=== PATIENT | female | born 2005 | race Hispanic/Latino ===

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

== ENCOUNTER 2025-01-11 12:19 | Emergency (ER) | payer OTHER ==
[~2025-01-11] VITALS: Ht 165.1 cm; Wt 45.3 kg
[~2025-01-11 12:19] MED LIST changes: +DIPH-435 PO; -DIPH25CA32 PO; +FLUO-365; +FLUO-96 PO; -FLUO20CA20 PO; -FLUO20CA22; +HYDR-643 PO; +HYDR1CAP25; +IRON65TA2 PO
[2025-01-11 15:11] LABS: KETONE, URINE AUTO RFX TRACE mg/dL (NEGATIVE); LEUKOCYTE ESTERASE UR AUTO RFX NEGATIVE (NEGATIVE); MUCUS, URINE RFX MODERATE (NEGATIVE); NITRITE, URINE AUTO RFX NEGATIVE (NEGATIVE); RBC, URINE AUTO RFX 1 /HPF (0-3); SQUAM EPITHELIAL CELL UR AURFX 2 /HPF (0-6); WBC, URINE AUTO RFX 2 /HPF (0-3)
[2025-01-11 16:22] LABS: Trichomonas vaginalis (AMP) NOT DETECTED (NEGATIVE)
[2025-01-11 16:47] LABS: GC DNA AMPLIFICATION NEGATIVE (NEGATIVE)
[2025-01-11] MEDS ORDERED: PHEN-501 PO (17:53)
[2025-01-11 18:07] VITALS: BP 115/77; TEMP 97.5; O2SAT 100
== END 2025-01-11 18:09 | disposition home or self-care (01) ==
LOC: M ED 12:19
DX: R30.0 Dysuria (principal); F43.10 Post-traumatic stress disorder, unspecified; F41.9 Anxiety disorder, unspecified; F32.A Depression, unspecified; Z79.899 Other long term (current) drug therapy

== ENCOUNTER 2025-01-16 07:43 | Emergency (ER) | payer OTHER, SELFPAY ==
[~2025-01-16] VITALS: Ht 165.1 cm; Wt 46.4 kg
[~2025-01-16 07:43] MED LIST changes: +PHEN-501 PO
[2025-01-16 12:45] VITALS: BP 124/74; TEMP 97.8; O2SAT 99
[2025-01-16 13:27] LABS: RSV AMPLIFICATION NEGATIVE (NEGATIVE)
== END 2025-01-16 12:47 | disposition home or self-care (01) ==
LOC: M ED 07:43
DX: J02.9 Acute pharyngitis, unspecified (principal); F41.9 Anxiety disorder, unspecified; F32.A Depression, unspecified; Z79.899 Other long term (current) drug therapy

== ENCOUNTER → 2025-01-19 | Outpatient (REF) | LOC: M EMP 08:24 | PROVIDERS: ATTEND Family Medicine | DX: Z20.822 Contact with and (suspected) exposure to COVID-19 (principal) ==